=== PATIENT | female | born 1980 | race Asian ===

== ENCOUNTER 2016-10-05 18:12 | Emergency (ER) | payer BC, OTHER ==
[~2016-10-05] VITALS: Ht 160 cm; Wt 89.5 kg
[~2016-10-05 18:12] MED LIST: OFLO5DRO7 RIGHT EAR
[2016-10-05 18:25] VITALS: Ht 160 cm; Wt 89.5 kg
[2016-10-05 18:54] LABS: ADD SCAN DIFF NO
[2016-10-05 18:58] LABS: BASOPHIL # 0.1 10^3/ul (0.0-0.1); BASOPHILS % 0.7 % (0.0-2.0); EOSINOPHILS # 0.6 10^3/ul (0.0-0.5); EOSINOPHILS % 5.6 % (0.0-7.0); HEMATOCRIT 36.3 % (37.0-47.0); HEMOGLOBIN 12.7 g/dl (12.0-16.0); LYMPHOCYTES # 4.1 10^3/ul (0.8-2.9); LYMPHOCYTES % 38.9 % (15.0-51.0); MEAN CORPUSCULAR HEMOGLOBIN 30.3 pg (29.0-33.0); MEAN CORPUSCULAR VOLUME 86.6 fl (82.0-101.0); MEAN PLATELET VOLUME 8.8 fl (7.4-10.4); MONOCYTE # 0.8 10^3/ul (0.3-0.9); MONOCYTES % 7.3 % (0.0-11.0); NEUTROPHILS % 46.7 % (39.0-77.0); PLATELET COUNT 368 10^3/UL (140-415); RED BLOOD COUNT 4.19 10^6/ul (4.20-5.40); RED CELL DISTRIBUTION WIDTH 12.1 % (11.5-14.5); WHITE BLOOD COUNT 10.6 10^3/ul (4.8-10.8)
[2016-10-05] MEDS ORDERED: IBUPROFEN 600 MG TAB PO ONE (19:00)
[2016-10-05 19:20] LABS: ALBUMIN 5.1 g/dl (3.3-4.9); ALBUMIN/GLOBULIN RATIO 1.45; BILIRUBIN,INDIRECT 0.4 mg/dl (0-1.1); BILIRUBIN,TOTAL 0.4 mg/dl (0.2-1.3); CREATININE 0.59 mg/dl (0.44-1.00); POTASSIUM 3.4 mmol/L (3.5-5.1); TOTAL PROTEIN 8.6 g/dl (6.1-8.1)
[2016-10-05 19:20] LABS: ADD UMIC NO; UR ASCORBIC ACID NEGATIVE (NEGATIVE); UR BILIRUBIN (Dip) NEGATIVE (NEGATIVE); UR BLOOD (Dip) NEGATIVE (NEGATIVE); UR CLARITY CLEAR (CLEAR); UR COLOR COLORLESS (YELLOW); UR GLUCOSE (Dip) NEGATIVE (NEGATIVE); UR KETONES (Dip) NEGATIVE (NEGATIVE); UR LEUKOCYTE ESTERASE (Dip) NEGATIVE Leu/ul (NEGATIVE); UR NITRITE (Dip) NEGATIVE (NEGATIVE); UR SPECIFIC GRAVITY (Dip) 1.002 (1.003-1.030); UR TOTAL PROTEIN (Dip) NEGATIVE (NEGATIVE); UR UROBILINOGEN (Dip) NEGATIVE (NEGATIVE)
[2016-10-05] MEDS ORDERED: IBUP-1542 PO (19:43)
[2016-10-05] MEDS ORDERED: TRAM50TA2 PO (19:43)
[2016-10-05] MEDS ORDERED: POTASSIUM CHLORIDE (SR) 20 MEQ TAB PO STA (19:48)
--- NOTE | 2016-10-05 19:51 | ERD ---
ER Documentation Chief Complaint Date/Time DATE: 10/05/16 TIME: 19:48 Chief Complaint Pt with back, breast pain and side pain since last night. HPI This 36-year-old female presents with pain in her upper back, and upper chest wall starting last night. She also feels pain in her breast. She denies any recent illnesses, cough, fevers, vomiting, abdominal pain, urinary complaints. ROS All systems reviewed and are negative except as per history of present illness. Medications Home Meds Active Scripts Tramadol HCl (Tramadol HCl) 50 Mg Tablet, 50 MG PO Q4 Y for PAIN, #15 TAB Prov:TALHA CORDOVA MD 10/05/16 Ibuprofen* (Motrin*) 600 Mg Tab, 600 MG PO Q6, #20 TAB Prov:TALHA CORDOVA MD 10/05/16 Ofloxacin* (Floxin* Otic) 0.3% -10 Ml Soln, 5 DROP RIGHT EAR BID for 10 Days, BOTTLE Prov:MELISSA MORTON PA-C 11/09/14 Allergies Allergies: Coded Allergies: No Known Drug Allergy (Verified Allergy, Unknown, 01/19/12) PMhx/Soc History of Surgery: Yes (CS) Anesthesia Reaction: No Hx Neurological Disorder: No Hx Respiratory Disorders: No Hx Cardiac Disorders: No Hx Psychiatric Problems: No Hx Miscellaneous Medical Probl: No (NO KNOWN MEDICAL CONDITION) Hx Alcohol Use: No Hx Substance Use: No Hx Tobacco Use: Yes (5CIGS/DAY) Smoking Status: Heavy tobacco smoker Physical Exam Vitals Vital Signs Date Time Temp Pulse Resp B/P Pulse Ox O2 Delivery O2 Flow Rate FiO2 10/05/16 18:25 98.8 66 18 132/83 100 Physical Exam Const: [] Head: Atraumatic Eyes: Normal Conjunctiva ENT: Normal External Ears, Nose and Mouth. Neck: Full range of motion..~ No meningismus. Resp: Clear to auscultation bilaterally Cardio: Regular rate and rhythm, no murmurs Abd: Soft, non tender, non distended. Normal bowel sounds Skin: No petechiae or rashes Back: No midline or flank tenderness Ext: No cyanosis, or edema Neur: Awake and alert Psych: Normal Mood and Affect Result Diagram: 10/05/16184910/05/161849 Results 24 hrs Laboratory Tests Test 10/05/16 17:00 10/05/16 18:50 Urine Color COLORLESS Urine Clarity CLEAR Urine pH 6.0 Urine Specific [place] 1.002 Urine Ketones NEGATIVEmg/dL Urine Nitrite NEGATIVEmg/dL Urine Bilirubin NEGATIVEmg/dL Urine Urobilinogen NEGATIVEmg/dL Urine Leukocyte Esterase NEGATIVELeu/ul Urine Hemoglobin NEGATIVEmg/dL Urine Glucose NEGATIVEmg/dL Urine Total Protein NEGATIVEmg/dl White Blood Count 10.610^3/ul Red Blood Count 4.1910^6/ul Hemoglobin 12.7g/dl Hematocrit 36.3% Mean Corpuscular Volume 86.6fl Mean Corpuscular Hemoglobin 30.3pg Mean Corpuscular Hemoglobin Concent 35.0g/dl Red Cell Distribution Width 12.1% Platelet Count 56299^3/UL Mean Platelet Volume 8.8fl Neutrophils % 46.7% Lymphocytes % 38.9% Monocytes % 7.3% Eosinophils % 5.6% Basophils % 0.7% Nucleated Red Blood Cells % 0.0/100WBC Neutrophils # 5.010^3/ul Lymphocytes # 4.110^3/ul Monocytes # 0.810^3/ul Eosinophils # 0.610^3/ul Basophils # 0.110^3/ul Nucleated Red Blood Cells # 0.010^3/ul Sodium Level 135mmol/L Potassium Level 3.4mmol/L Chloride Level 97mmol/L Carbon Dioxide Level 27mmol/L Anion Gap 14 Blood Urea Nitrogen 8mg/dl Creatinine 0.59mg/dl Glucose Level 147mg/dl Calcium Level 10.0mg/dl Total Bilirubin 0.4mg/dl Direct Bilirubin 0.00mg/dl Indirect Bilirubin 0.4mg/dl Aspartate Amino Transf (AST/SGOT) 25IU/L Alanine Aminotransferase (ALT/SGPT) 36IU/L Alkaline Phosphatase 49IU/L Total Protein 8.6g/dl Albumin 5.1g/dl Globulin 3.50g/dl Albumin/Globulin Ratio 1.45 Current Medications Medications (Trade) Dose Ordered Sig/Mani Route PRN Reason Start Time Stop Time Status Last Admin Dose Admin Ibuprofen (Motrin) 600 mg ONCE ONCE PO 10/05/16 19:00 10/05/16 19:01 DC 10/05/16 19:02 Procedures/MDM Potassium is 3.4, patient was given 40 mEq potassium. Otherwise there is no acute findings on CBC or CMP. Urine is negative for leukocytes, nitrites, glucose, blood. Chest X-ray 1V Interpreted by me: Soft Tissue: No acute abnormalities Bones: No acute abnormalities Mediastinum/Cardiac Silhouette/Lungs: [No acute abnormalities] impression have normal 1 view chest x-ray Patient was given ibuprofen for pain. Patient presents with upper back and lower chest wall pain of uncertain etiology. Some signs or symptoms of serious illness as the patient has no fevers, vomiting, chest pain, abdominal pain, urinary complaints. She may have muscular skeletal pain or viral myalgias. Signs and symptoms do not suggest rhabdomyolysis, sepsis, additional causes of presenting complaints. She will treated with ibuprofen and further observation at home. The patient was stable with no new complaints during the ER course. Clinically, there is no current evidence to suggest meningitis, sepsis, acute abdomen, pneumonia, acute coronary syndrome, pulmonary embolism, or any other emergent condition appearing to require further evaluation or hospitalization. The patient should certainly return for any new or worsening symptoms per the aftercare instructions. They should otherwise follow-up with her primary care doctor for reevaluation this week. Departure Diagnosis: Primary Impression: Myalgia Condition: Stable Patient Instructions: Myalgias Additional Instructions: Examinations normal today. May be early viral illness. Recheck for new or worsening symptoms with primary care doctor. TALHA CORDOVA MD Oct 05, 2016 19:50
--- NOTE | 2016-10-05 21:07 | RADRPT ---
PROCEDURE: Portable chest x-ray. CLINICAL INDICATION: Chest pain. TECHNIQUE: Portable AP view of the chest. COMPARISON: None. FINDINGS: No pulmonary edema or conolidation is identified. The cardiac silhouette is magnified. No pleural effusion is seen. There is no pneumothorax. IMPRESSION: 1. No evidence of acute cardiopulmonary disease. RPTAT: HTAR .Josemanuel Esteban MD, MD Date Time Electronically viewed and signed by .Josemanuel Esteban MD, on 10/05/2016 21:06 .R/
[2016-10-05 21:42] VITALS: BP 128/79; PULSE 72; RESP 20; TEMP 98.5
== END 2016-10-05 21:43 | disposition home or self-care (01) ==
LOC: FTE 18:12
DX: M79.1 Myalgia (principal); F17.210 Nicotine dependence, cigarettes, uncomplicated
CPT/HCPCS: 71010; 80053; 81003; 85025; Z7502; Z7610